=== PATIENT | female | born 1955 | race Caucasian/White ===

== ENCOUNTER 2019-06-15 05:54 | Day surgery (SDC) | payer BC, OTHER ==
[2019-05-31 16:27] VITALS: BMI 22.6
[2019-06-15] MEDS ORDERED: MIDAZOLAM HCL 2 MG/2 ML SINGLE DOSE VIAL ONE ×3 (07:03→07:10)
[2019-06-15] MEDS ORDERED: ROPIVACAINE HCL 0.5% 30ML VIAL ONE (07:03)
[2019-06-15] MEDS ORDERED: PROPOFOL 20 ML ONE ×3 (07:09→07:10)
[2019-06-15] MEDS ORDERED: CEFAZOLIN 1 GM/D5W 1 GM/50 ML BAG IVPB ONE (08:00)
[2019-06-15] MEDS ORDERED: VANCOMYCIN 1,000 MG in DEXTROSE 5%-WATER - 250 ML IVPB ONE (08:00)
[2019-06-15] MEDS ORDERED: TRANEXAMIC ACID 1000 MG/10 ML VIAL ONE (08:57)
--- NOTE | 2019-06-15 11:24 | OP ---
DATE OF OPERATION: DATE OF DICTATION: 06/15/2019 SURGEON: Kishore Mora MD LEATHER BELT MAKER: JEFF Kulkarni PREOPERATIVE DIAGNOSIS: Right rotator cuff impingement syndrome with rotator cuff tear. POSTOPERATIVE DIAGNOSIS: Right rotator cuff impingement syndrome with rotator cuff tear. OPERATION PERFORMED: 1. Right Neer decompression. 2. Excisional arthroplasty of clavicle, transection of coracoacromial ligament. 3. Acromioplasty. 4. Large tear approximately 3 cm in length of the rotator cuff. ANESTHESIA: Conscious sedation with scalene block. ANTIBIOTICS GIVEN: Ancef 2 g. TXA given. OPERATION DETAILS: Patient correctly identified and brought to operating room. Right upper extremity prepped and draped in the routine manner with Betadine scrub solution, wiped off with alcohol, DuraPrep applied. A free drape of the right upper limb was performed. Timeout was called. Imaging was available for intraoperative evaluation. The incision was made from the tip of the coracoid to the tip of the acromion in the lines of Nidhi. The tissues were lifted and dissected off the deltoid. The deltoid was dissected with unipolar Bovie off the distal 0.5 cm of the clavicle. Two sharp Hohmanns were placed to protect the undersurface of the clavicle and a beveled osteotomy performed into the distal clavicle, excising the clavicle distal end, thus performing the Elizabeth excision arthroplasty. At that point the deltoid was lifted off the coracoacromial ligament. The coracoacromial ligament was clearly visualized. It was transected longitudinally, that is 90 degrees of the fibers, with a 15 blade. Branches of the thoracoacromial vessel were with bipolar Bovie. The decompression was extended right to the superior aspect of the shoulder joint itself. With finger palpation the undersurface of the acromion was palpated. A sharp Hohmann was placed on the undersurface of the acromion small acromioplasty was performed. We then inspected the rotator cuff. A massive tear was encountered. Edges were excised and then using No. 1 Vicryl the tear was repaired. This was a tear in the muscle, not torn off the bone. A watertight seal of tear was achieved. The wounds were thoroughly lavaged. Incisions were closed as follows: The deltoid was reapproximated with the capsule to enhance the excisional arthroplasty position with 1 Vicryl, subcutaneous 1 Vicryl, skin 3-0 Monocryl and Steri-Strips. A sling applied. Operation went well. No complications. MD HERB [id number]
--- NOTE | 2019-06-15 11:59 | OP ---
Operative Note - Note: Operative Date: 06/15/19 Pre-Operative Diagnosis: Right shoulder rotator cuff impingement syndrome with rotator cuff tear Operation: 1. Right shoulder open NEER decompression. 2. Excisional arthroplasty of clavicle, transection of coracoacromial ligament. 3. Acromioplasty. 4. Repair rotator cuff tear (3 cm ) Post-Operative Diagnosis: Same as Pre-op Surgeon: Kishore Mora Director It Project: [employer] Anesthesiologist/DOCK OPERATOR: Jalil Sheets Anesthesia: MAC Estimated Blood Loss (mls): 20 Fluid Volume Replaced (mls): 800 Operative Report Dictated: Yes
--- NOTE | 2019-06-15 12:00 | SURG ---
Surgery Director Marketing Note Director Marketing: [employer]x [employer] PA-C Date of Service: 06/15/19 Diagnosis: Right shoulder rotator cuff impingement syndrome with rotator cuff tear Procedure: 1.. Right shoulder open NEER decompression. 2. Excisional arthroplasty of clavicle, transection of coracoacromial ligament. 3. Acromioplasty. 4. Repair rotator cuff tear (3 cm ) I was present for the entirety of the operative procedure. For further detail, please refer to operative report. Visit type - Case Type Case Type: Scheduled - New patient This patient is new to me today: Yes Date on this admission: 06/15/19
[2019-06-15 13:04] VITALS: TEMP 97.5
[2019-06-15 13:07] VITALS: BP 108/65; PULSE 78
== END 2019-06-15 12:00 | disposition home or self-care (01) ==
LOC: FASU 05:54
PROVIDERS: ATTEND Orthopaedic Surgery Orthopaedic Surgery of the Spine
PROC: 0MN10ZZ Release Right Shoulder Bursa and Ligament, Open Approach (ICD-10-PCS; 2019-06-15)
PROC: 0LQ10ZZ Repair Right Shoulder Tendon, Open Approach (ICD-10-PCS; 2019-06-15)
PROC: 0PB90ZZ Excision of Right Clavicle, Open Approach (ICD-10-PCS; principal; 2019-06-15 08:06)
DX: M75.121 Complete rotator cuff tear or rupture of right shoulder, not specified as traumatic (principal); M75.41 Impingement syndrome of right shoulder
CPT/HCPCS: 94760

== ENCOUNTER 2020-04-16 06:06 | Day surgery (SDC) | payer OTHER ==
[2020-04-14 13:11] VITALS: BMI 23.4
[2020-04-16] MEDS ORDERED: LOCK ITEM NR ONE (06:34)
[2020-04-16] MEDS ORDERED: ROPIVACAINE HCL 0.5% 30ML VIAL ONE (06:40)
[2020-04-16] MEDS ORDERED: MIDAZOLAM HCL 2 MG/2 ML SINGLE DOSE VIAL ONE ×2 (06:40→08:10)
[2020-04-16] MEDS ORDERED: PROPOFOL 20 ML ONE ×2 (07:51)
[2020-04-16] MEDS ORDERED: SODIUM CHLORIDE 0.9% P/F 10 ML VIAL IJ ONE (07:52)
[2020-04-16] MEDS ORDERED: LIDOCAINE HCL/PF 2% SDV 5ML VIAL ONE (07:52)
[2020-04-16] MEDS ORDERED: ceFAZolin SODIUM 1 GM VIAL ONE (07:52)
[2020-04-16] MEDS ORDERED: PHENYLEPHRINE HCL 10 MG/1 ML SINGLE DOSE VIAL ONE (07:53)
[2020-04-16] MEDS ORDERED: SUCCINYLCHOLINE CHLORIDE 200 MG/10 ML SYRINGE ONE (07:53)
[2020-04-16] MEDS ORDERED: EPINEPHrine 1:10,000 (P-F SYR) 1 MG/10 ML DISP.SYRIN ONE (07:53)
[2020-04-16] MEDS ORDERED: ePHEDrine SULFATE 50 MG/1 ML AMPULE ONE (07:54)
[2020-04-16] MEDS ORDERED: ceFAZolin SODIUM 1 GM VIAL IVPB ONE (08:10)
[2020-04-16] MEDS ORDERED: DEXAMETHASONE SOD PHOSPHATE 4 MG/1 ML VIAL ONE (08:16)
[2020-04-16] MEDS ORDERED: ONDANSETRON 4 MG/2 ML VIAL ONE (08:16)
[2020-04-16] MEDS ORDERED: TRANEXAMIC ACID 1000 MG/10 ML VIAL ONE (08:48)
[2020-04-16] MEDS ORDERED: oxyCODONE HCL 5 MG TABLET PO PRN ×2 (09:54)
[2020-04-16] MEDS ORDERED: ONDANSETRON 4 MG/2 ML VIAL IVPUSH PRN (09:54)
[2020-04-16] MEDS ORDERED: LACTATED RINGERS SOLUTION 1,000 ML IV SCH (10:00)
[2020-04-16 12:01] VITALS: BP 114/66; PULSE 82; TEMP 98
== END 2020-04-16 12:01 | disposition home or self-care (01) ==
LOC: FASU 06:06
PROVIDERS: ATTEND Orthopaedic Surgery Orthopaedic Surgery of the Spine
PROC: 0LQ20ZZ Repair Left Shoulder Tendon, Open Approach (ICD-10-PCS; 2020-04-16)
PROC: 0PBB0ZZ Excision of Left Clavicle, Open Approach (ICD-10-PCS; principal; 2020-04-16 08:00)
PROC: 0MN20ZZ Release Left Shoulder Bursa and Ligament, Open Approach (ICD-10-PCS; 2020-04-16 08:00)
DX: M75.42 Impingement syndrome of left shoulder (principal); M75.122 Complete rotator cuff tear or rupture of left shoulder, not specified as traumatic
CPT/HCPCS: 88304-TC; 88311-TC; 94760